=== PATIENT | male | born 1975 | race Caucasian/White ===

== ENCOUNTER 2018-07-06 14:55 | Emergency (ER) | payer SELFPAY ==
[2018-07-06 14:55] VITALS: BP 198/99; PULSE 110; RESP 14; TEMP 36.6; O2SAT 96; BMI 37.3
--- NOTE | 2018-07-06 15:38 | ED.DCSUM_ITS ---
- ER Visit Summary Date of Service: 07/06/18 Chief Complaint: Left index finger avulsion History of Present Illness: The patient is a 42 M who was cutting carpet when the knife blade a fullness to his distal right index finger and distal nail. He was unable to get the bleeding to stop as he came to the emergency department. He states his last tetanus was last year. He is left-hand dominant Physical Examination: Afebrile vital signs are stable Left index finger demonstrates the dorsal tip to have been avulsed. There is a small amount of the nail that has been cleanly avulsed as well. Neurovascular intact. There is mild venous oozing. Emergency Department Course and Treatment: Patient held pressure which controlled bleeding. Silver nitrate was used to cauterize a small vein. Surgicel was placed and secured and a nonstick gauze pad was then placed followed by tube gauze. Wound care was discussed with the patient. Return if worsening or concerns Impression: 1. Left index finger tip avulsion 2. Left index finger nail avulsion This note was generated with [employer] dictation software. It may contain incorrect words, spelling, and punctuation that were not noted in review of the chart prior to signing ED Disposition - Plan for ED Patient: Disposition: Home or Assisted Living Chief Complaint: Laceration Instructions: ED Laceration Amputation Finger Tip Open Tx Additional Instructions: Return if worsening or concerns
[2018-07-06] MEDS: Silver Nitrate (BKC) 3 EACH TOPICAL (15:44)
[2018-07-06 16:20] VITALS: PULSE 115; RESP 14; O2SAT 99
== END 2018-07-06 16:44 | disposition home or self-care (01) ==
PROVIDERS: Emergency Provider Emergency Medicine
DX: S61.311A Laceration without foreign body of left index finger with damage to nail, initial encounter (principal); W26.0XXA Contact with knife, initial encounter; Y93.89 Activity, other specified; Y92.9 Unspecified place or not applicable
CPT/HCPCS: 99282

== ENCOUNTER 2021-07-01 15:57 | Outpatient (CLI) | payer BC, SELFPAY | END 2021-07-01 23:59 | disposition short-term general hospital (02) | PROVIDERS: Referring Provider Physician Assistant Surgical; Visit Provider Physician Assistant Surgical | DX: U07.1 COVID-19 (principal) | CPT/HCPCS: 87635; U0003; U0005 ==